=== PATIENT | male | born 1975 | race Caucasian/White ===

== ENCOUNTER 2020-03-23 18:23 | Emergency (ER) | payer OTHER, SELFPAY ==
[~2020-03-23 18:23] MED LIST: Iopamidol 370 76% 100 ML VIAL ONE
[2020-03-23] MEDS ORDERED: Aspirin Chewable 81 MG TAB ONE (19:04)
[2020-03-23 19:34] LABS: #Eosinphils 0.1 thou/uL (0.0-0.7); #Lymphocytes 2.2 thou/uL (1.20-3.40); #Monocytes 0.5 thou/uL (0.11-0.59); %Basophils 0.1 % (0.0-1.0); %Eosinophils 1.7 % (0.0-10.0); %Lymphocytes 32.1 % (21.0-51.0); %Monocytes 7.6 % (0.0-10.0); %Neutrophils 58.5 % (42.0-75.0); Hemoglobin 15.3 g/dL (14.0-18.0); Mean Corpuscular HGB CONC 33.9 g/dL (32.0-36.0); Mean Corpuscular Hemoglobin 29.8 pg (27.0-31.0); Mean Corpuscular Volume 87.8 fL (78.0-98.0); Mean Platelet Volume 7.7 fL (7.4-10.4); Platelet Count 226 thou/uL (130-400); RBC Distribution Width 11.3 % (11.5-14.5); Red Blood Cell (RBC) Count 5.13 mill/uL (4.70-6.10); White Blood Cell (WBC) Count 6.8 thou/uL (4.8-10.8)
[2020-03-23 19:57] LABS: ALT (SGPT) 58 U/L (8-55); AST (SGOT) 33 U/L (5-34); Albumin 3.9 g/dL (3.5-5.0); Alkaline Phosphatase 131 U/L (40-110); Anion Gap 12 mmol/L (10-20); BUN (Urea Nitrogen) 12 mg/dL (8.9-20.6); Bilirubin, Total 0.2 mg/dL (0.2-1.2); CK (CPK) 165 U/L (30-200); Calc. Creatinine Clearance 0 mL/min (70-130); Calcium 8.2 mg/dL (7.8-10.44); Carbon Dioxide 28 mmol/L (22-29); Chloride 104 mmol/L (98-107); Estimated GFR-MDRD Greater than 90; Globulin 2.5 g/dL (2.4-3.5); Glucose 136 mg/dL (70-105); Protein, Total 6.4 g/dL (6.0-8.3); Sodium 140 mmol/L (136-145)
--- NOTE | 2020-03-23 20:27 | CT ---
CT ANGIOGRAM OF THE CHEST: Date: 03-23-2020 History: Chest pain Technique: Axial CT imaging obtained at 2.5 mm intervals through the chest with IV contrast using CT angiogram protocol. Coronal and oblique sagittal 3D reformatted imaging obtained. FINDINGS: No axillary, mediastinal, or hilar lymphadenopathy. Gastric suture material noted. Imaged upper abdom en demonstrates no acute findings. There is a small amount of fluid in the anterior mediastinum adjacent to the aortic arch. The imaged aorta appears grossly unremarkable. No pleural, paracardial, or mediastinal fluid is seen. No evidence for central pulmonary arterial embolism. Distal pulmonary arterial branches are not optim ally opacified. Evaluation of the lung parenchyma demonstrates no significant pulmonary parenchymal consolidation, gr ound glass opacity, or airspace disease. There are a few incidentally noted nodules on the right, inc luding a lateral 4 mm nodule on image 45 and a 2-3 mm lateral nodule on image 32. Review of the osseo us structures demonstrates no acute findings. IMPRESSION: No acute findings. No evidence for a pulmonary arterial embolism. POS: [facility]
== END 2020-03-23 21:51 | disposition home or self-care (01) ==
LOC: ERS 18:23
DX: R07.89 Other chest pain (principal); E66.9 Obesity, unspecified
CPT/HCPCS: 71275; 80053; 82550; 83880; 84484; 85025; 93005; Q9967